=== PATIENT | female | born 1990 | race American Indian/Alaskan Native ===

== ENCOUNTER 2019-06-13 08:03 | Emergency (ER) | payer SELFPAY ==
--- NOTE | 2019-06-13 09:19 | Emergency Department Report ---
ED Lower Extremity HPI - General Chief Complaint: Extremity Injury, Lower Stated Complaint: (L)ANKLE PAIN/SWELLING Time Seen by Provider: 06/13/19 09:00 Source: patient, EMS Mode of arrival: Wheelchair Limitations: No Limitations - History of Present Illness Initial Comments: Patient is a 29-year-old female that presents emergency room with complaints of left ankle pain and swelling. Patient states last night approximately 11 PM she was stepping off of a mortar bus and twisted her ankle. Patient states she is able to weight but is difficulty due to pain. Patient states her left ankle is swollen. Patient states her left ankle is tender to touch. Patient states the pain is a 10 out of 10. Patient states pain is nonradiating. Patient states the pain is better with rest and elevation. Patient states the pain is worse with palpation and movement. MD Complaint: ankle injury -: Sudden Injury: Ankle: Left Type of Injury: eversion Place: street/outdoors Severity: severe Severity scale (0 -10): 10 Improves With: rest Worsens With: weight bearing, movement, palpation Context: walking Associated Symptoms: swelling, able to partially bear weight. denies: snap/pop sensation, numbness, tingling - Related Data Previous Rx's Medication Instructions Recorded Last Taken Type HYDROcodone/APAP 7.5-325 [[place] 1 each PO Q8HR PRN #10 tablet 06/13/19 Unknown Rx 7.5/325] Ibuprofen [Motrin 800 MG tab] 800 mg PO Q8HR PRN #20 tablet 06/13/19 Unknown Rx Allergies Allergy/AdvReac Type Severity Reaction Status Date / Time No Known Allergies Allergy Unverified 06/13/19 08:26 ED Review of Systems ROS: Stated complaint: (L)ANKLE PAIN/SWELLING Other details as noted in HPI Constitutional: denies: chills, fever Eyes: denies: eye pain, eye discharge, vision change ENT: denies: ear pain, throat pain Respiratory: denies: cough, shortness of breath, wheezing Cardiovascular: denies: chest pain, palpitations Endocrine: no symptoms reported Gastrointestinal: denies: abdominal pain, nausea, diarrhea Genitourinary: denies: urgency, dysuria, discharge Musculoskeletal: denies: back pain, joint swelling, arthralgia Skin: denies: rash, lesions Neurological: denies: headache, weakness, paresthesias Psychiatric: denies: anxiety, depression Hematological/Lymphatic: denies: easy bleeding, easy bruising ED Past Medical Hx - Past Medical History Previous Medical History?: Yes Hx Hypertension: Yes - Surgical History Past Surgical History?: Yes Additional Surgical History: x 1 - Family History Family history: no significant - Social History Smoking Status: Current Every Day Smoker Substance Use Type: Alcohol, Marijuana - Medications Home Medications: Home Medications Medication Instructions Recorded Confirmed Last Taken Type HYDROcodone/APAP 7.5-325 [[place] 1 each PO Q8HR PRN #10 tablet 06/13/19 Unknown Rx 7.5/325] Ibuprofen [Motrin 800 MG tab] 800 mg PO Q8HR PRN #20 tablet 06/13/19 Unknown Rx ED Physical Exam - General Limitations: No Limitations General appearance: alert, in no apparent distress - Head Head exam: Present: atraumatic, normocephalic - Eye Eye exam: Present: normal appearance - ENT ENT exam: Present: mucous membranes moist - Neck Neck exam: Present: normal inspection - Respiratory Respiratory exam: Present: normal lung sounds bilaterally. Absent: respiratory distress, wheezes, rales - Cardiovascular Cardiovascular Exam: Present: regular rate, normal rhythm. Absent: systolic murmur, diastolic murmur, rubs, gallop - GI/Abdominal GI/Abdominal exam: Present: soft, normal bowel sounds - Rectal Rectal exam: Present: deferred - Extremities Exam Extremities exam: Present: normal inspection (except for left ankle.), t enderness (tenderness to the medial and lateral left ankle.) - Back Exam Back exam: Present: normal inspection - Neurological Exam Neurological exam: Present: alert, oriented X3 - Psychiatric Psychiatric exam: Present: normal affect, normal mood - Skin Skin exam: Present: warm, dry, intact, normal color. Absent: rash ED Course Vital Signs 06/13/19 06/13/19 08:33 10:29 Temperature 98.5 F Pulse Rate 101 H 96 H Respiratory 18 14 Rate Blood Pressure 152/83 Blood Pressure 135/68 [Left] O2 Sat by Pulse 100 100 Oximetry - Reevaluation(s) Reevaluation #1: I discussed all results with patient. I discussed plan of care with patient. Patient agrees with plan of care. Patient is stable for discharge. Patient will be discharged home. Patient given discharge instructions. Patient voiced understanding of discharge instructions. 06/13/19 09:58 - Orthopedic Splinting/Casting Injury #1 Side: left Lower Extremity Injury Location: ankle Lower Extremity Immobilizer: posterior splint Other Orthopedic Equipment: crutches Additional Comments: Neurovascular intact post-splinting. Good cap refill post-splint. Splint placed by nursing staff ED Lower Extremity MDM - Radiology Data Radiology results: report reviewed, image reviewed LEFT ANKLE, 3 VIEWS INDICATION: PAIN AND SWELLING. COMPARISON: None. IMPRESSION: Moderate lateral soft tissue swelling. An oblique nondisplaced fracture is identified in the distal fibula at the level of the ankle joint extending proximally. The distal tibia and talar dome are intact. No joint pathology is appreciated. - Medical Decision Making Patient is a 29-year-old female that presents emergency room with ankle pain. Patient x-ray which shows a fibular fracture. Patient placed in a posterior splint. Patient's neurovascular intact post splinting. Patient stable for discharge. Patient discharged home. - Differential Diagnosis strain, fx, contusion. sprain Critical care attestation.: If time is entered above; I have spent that time in minutes in the direct care of this critically ill patient, excluding procedure time. ED Disposition Clinical Impression: Ankle pain, left Qualifiers: Chronicity: acute Qualified Code(s): M25.572 - Pain in left ankle and joints of left foot Ankle fracture, left Qualifiers: Encounter type: initial encounter Fracture type: closed Qualified Code(s): S82.892A - Other fracture of left lower leg, initial encounter for closed fracture Closed fibular fracture Qualifiers: Encounter type: initial encounter Fibula location: distal Fracture morphology: other fracture Laterality: left Qualified Code(s): S82.832A - Other fracture of upper and lower end of left fibula, initial encounter for closed fracture Disposition: DC-01 TO HOME OR SELFCARE Is pt being admited?: No Does the pt Need Aspirin: No Condition: Stable Instructions: Ankle Fracture (ED), Ankle Sprain (ED) Additional Instructions: Patient to follow-up with primary care in 2-3 days. Patient to follow-up with orthopedist in 2-3 days. Patient to remain in splint until cleared to change by orthopedist. Patient to return to ER if condition worsens. Patient to rest. Patient to increase water. Patient to take meds as directed. Patient's take Tylenol or ibuprofen when necessary for pain. Prescriptions: Ibuprofen [Motrin 800 MG tab] 800 mg PO Q8HR PRN #20 tablet PRN Reason: pain HYDROcodone/APAP 7.5-325 [[place] 7.5/325] 1 each PO Q8HR PRN #10 tablet PRN Reason: Pain Referrals: LORENA MAO MD [Staff Physician] - 2-3 Days Forms: Work/School Release Form(ED) Time of Disposition: 09:57
--- NOTE | 2019-06-13 09:24 | XRay Report ---
LEFT ANKLE, 3 VIEWS INDICATION: PAIN AND SWELLING. COMPARISON: None. IMPRESSION: Moderate lateral soft tissue swelling. An oblique nondisplaced fracture is identified i n the distal fibula at the level of the ankle joint extending proximally. The distal tibia and talar dome are intact. No joint pathology is appreciated. Signer Name: Michael Cline Jr, MD Signed: 06/13/2019 9:19 AM Workstation Name: [id number]
[2019-06-13 10:30] VITALS: BP 135/68
== END 2019-06-13 10:43 | disposition home or self-care (01) ==
LOC: ED 08:03
DX: S82.892A Other fracture of left lower leg, initial encounter for closed fracture (principal); S82.402A Unspecified fracture of shaft of left fibula, initial encounter for closed fracture; I10 Essential (primary) hypertension; F17.200 Nicotine dependence, unspecified, uncomplicated; F12.10 Cannabis abuse, uncomplicated; X50.1XXA Overexertion from prolonged static or awkward postures, initial encounter; Y93.89 Activity, other specified; Y92.410 Unspecified street and highway as the place of occurrence of the external cause; Y99.8 Other external cause status